=== PATIENT | male | born 1955 | race American Indian/Alaskan Native ===

== ENCOUNTER 2021-03-03 16:28 | Inpatient (IN) ==
--- NOTE | 2021-03-03 18:47 | XRay Report ---
HISTORY: COVID pneumonia with worsening shortness of breath and cough FINDINGS: There is a severe diffuse infiltrates throughout the left lung and mild to moderate pneumonia centrally in the right lung. No prior study is available for comparison. No pleural effusion is present. The heart size is within upper limits of normal. Aorta is mildly tortuous. IMPRESSION: Severe pneumonia in the left and mild to moderate pneumonia in the right lung Interpreted and Authenticated by: Edu Dougherty 03/03/21
[2021-03-03 19:50] LABS: Basophils # (Auto) 0.01 K/mcL (0.00-0.30); Basophils % (Auto) 0.1 % (0.0-2.0); Eosinophils # (Auto) 0.01 K/mcL (0.00-0.70); Eosinophils % (Auto) 0.1 % (0.0-7.0); Hematocrit 38.4 % (40.1-51.0); Hemoglobin 13.2 g/dL (13.7-17.5); Lymphocytes # (Auto) 0.95 K/mcL (1.50-4.80); Lymphocytes % (Auto) 11.8 % (15.5-49.0); Mean Cell Volume 83.8 fL (80.0-100.0); Mean Corpuscular HGB Conc 34.4 g/dL (31.0-36.0); Mean Platelet Volume 11.6 fL (7.4-10.4); Monocytes # (Auto) 0.48 K/mcL (0.10-0.90); Platelet Count 246 K/mcL (140-440); RBC 4.58 M/mcL (4.63-6.08); Red Cell Distribution Width 13.2 % (11.5-14.5)
[2021-03-03] MEDS ORDERED: IPRATROPIUM/ALBUTEROL 3 ML AMPUL.NEB NEB ONE (19:53)
--- NOTE | 2021-03-03 19:53 | Emergency Department Note ---
HPI General Chief complaint: Shortness of Breath/Dyspnea Stated complaint: cough, SOB Time Seen by Provider: 03/03/21 17:21 Source: patient Mode of arrival: ambulatory Limitations: no limitations History of Present Illness HPI Narrative: This is a 65-year-old Covid + male patient who presents with worsening shortness of breath. He was diagnosed with Covid about 17 days ago. A chest x-ray today shows bilateral infiltrates consistent with Covid pneumonia. He is requiring 3 L of oxygen to keep his sats above 92%. He drops down to the low 80s on room air. Patient has no other medical comorbidities and is not on medications. States he can get a sleep at night due to his coughing and he reports pleuritic chest pain. Related Data Allergies Allergy/AdvReac Type Severity Reaction Status Date / Time No Known Drug Allergies Allergy Verified 03/03/21 16:32 Review of Systems ROS ROS Narrative: Narrative: All systems ED: reviewed and negative except as stated. PFSH Narrative Patient History Narrative: Narrative: Medical/Surgical/Family History All Active Problems (Updated 03/03/21 @ 22:01 by Lali Montez PA-C) Acute respiratory failure with hypoxia (Acute) Pneumonia due to COVID-19 virus (Acute) Social History Smoking Status: Never smoker Exam Narrative Narrative: General: AOx3, NAD, nontoxic appearing. Pleasant and conversant. HEENT: PERRLA, EOMI, normocephalic. Moist mucous membranes. Normal facies and normal dentition. Chest: Symmetric, no pain to palpation Respiratory: Bilateral crackles in all lung isabel. Productive cough noted. Mild respiratory distress. Labored breathing with respiratory rate 33 breaths/min. Heart: Regular rate and rhythm, no murmurs/clicks/rubs. Abdomen: Non-tender, Non distended, normal bowel tones. No organomegaly. Extremities: Warm and well perfused. No edema. DP 2+ bilaterally. No venous stasis. Neuro: No focal deficits. Cranial nerves II-XII normal. Skin: Warm dry, no rashes or lesions, no cyanosis. Psych: Normal mood and affect Heme/Lymph: No abnormal bruising General Limitations: no limitations Course Course Course Narrative: 65-year-old male presents with bilateral Covid pneumonia and acute hypoxic respiratory failure Reevaluation(s) Reevaluation #1: Chest x-ray shows bilateral pneumonia with a right middle lobe infiltrate. Check a CBC and CMP Given patient's hypoxia he will need admission and treatment. Will initiate Decadron 6 mg IV x1 dose and DuoNeb therapies. Give 1 g IV ceftriaxone for right lower lobe infiltrate, possible community- acquired pneumonia Vital Signs Vital signs: Vital Signs Temperature 98.1 F 03/03/21 16:29 Pulse Rate 97 H 03/03/21 16:29 Pulse Oximetry (%) 90 03/03/21 16:29 Temperature 99.8 F H 03/03/21 18:16 Pulse Rate 85 03/03/21 21:46 Respiratory Rate 37 H 03/03/21 21:46 Blood Pressure 124/73 03/03/21 21:46 Pulse Oximetry (%) 92 03/03/21 21:46 MDM MDM Narrative Medical decision making narrative: COVID-19 pneumonia Acute hypoxic respiratory failure The patient meets criteria for admission. I signed the patient out to the ospitalist who has accepted. Lab Data Result diagrams: 03/03/21 18:51 03/03/21 18:51 Labs: Lab Results 03/03/21 03/03/21 Range/Units 18:51 18:51 WBC 8.0 (4.5-11.0) K/mcL RBC 4.58 L (4.63-6.08) M/mcL Hgb 13.2 L (13.7-17.5) g/dL Hct 38.4 L (40.1-51.0) % MCV 83.8 (80.0-100.0) fL MCH 28.8 (26.0-34.0) pg MCHC 34.4 (31.0-36.0) g/dL RDW 13.2 (11.5-14.5) % Plt Count 246 (140-440) K/mcL MPV 11.6 H (7.4-10.4) fL Neut % (Auto) 82.0 H (38.0-78.0) % Lymph % (Auto) 11.8 L (15.5-49.0) % [place] % (Auto) 6.0 (1.0-12.0) % Eos % (Auto) 0.1 (0.0-7.0) % Baso % (Auto) 0.1 (0.0-2.0) % Lymph # (Auto) 0.95 L (1.50-4.80) K/mcL [place] # (Auto) 0.48 (0.10-0.90) K/mcL Eos # (Auto) 0.01 (0.00-0.70) K/mcL Baso # (Auto) 0.01 (0.00-0.30) K/mcL Absolute Neutrophils 6.57 (1.80-8.00) K/mcL Sodium 126 L (133-145) mmol/L Potassium 3.9 (3.3-5.1) mmol/L Chloride 91 L (96-108) mmol/L Carbon Dioxide 21 L (22-30) mmol/L Anion Gap 14.0 (8.0-16.0) BUN 15 (8-23) mg/dL Creatinine 1.0 (0.7-1.2) mg/dL GFR Calculation 79 Glucose 115 H (70-105) mg/dL Calcium 8.3 L (8.6-10.4) mg/dL Total Bilirubin 0.6 (0.1-1.0) mg/dL AST 51 H (<40) U/L ALT 50 H (<40) U/L Alkaline Phosphatase 96 (39-117) U/L Total Protein 7.1 (5.9-8.4) gm/dL Albumin 3.4 (3.2-5.2) gm/dL Globulin 3.7 (2.2-3.7) gm/dL Albumin/Globulin Ratio 0.9 L (1.0-2.3) CC TIME Critical Care Time Critical Care Time: Yes Total Critical Care Time: 31 Attestation: I personally spent a total of 31 minutes of critical care time in obtaining history, performing a physical exam, bedside monitoring of interventions, collecting interpreting tests and discussions with consultants but excluding time spent performing procedures, treating other patients and teaching time. Clinical concern hypoxic respiratory failure Intervention Oxygen, decadron, admission Discharge Plan Patient/Caregiver Discharge Instructions Pt seen by ENT NURSE/PA only: Yes Clinical Impression: Acute respiratory failure with hypoxia, Pneumonia due to COVID-19 virus Patient Disposition: Xfer As Inpt ([facility]) Condition: Fair Follow up with: William Cabrera ARNP [Primary Care Provider] -
[2021-03-03] MEDS ORDERED: DEXAMETHASONE 10 MG/ML VIAL IV ONE (19:54)
[2021-03-03 20:00] LABS: ALT/SGPT 50 U/L (<40); AST/SGOT 51 U/L (<40); Albumin 3.4 gm/dL (3.2-5.2); Albumin/Globulin Ratio 0.9 (1.0-2.3); Alkaline Phosphatase 96 U/L (39-117); Bilirubin,Total 0.6 mg/dL (0.1-1.0); Blood Urea Nitrogen 15 mg/dL (8-23); Calcium 8.3 mg/dL (8.6-10.4); Carbon Dioxide 21 mmol/L (22-30); Chloride 91 mmol/L (96-108); Globulin 3.7 gm/dL (2.2-3.7); Glomerular Filtration Rate 79; Glucose 115 mg/dL (70-105)
[2021-03-03] MEDS ORDERED: cefTRIAXone 1 GM VIAL IV ONE (20:57)
--- NOTE | 2021-03-03 21:37 | Internal Med History&Physical ---
HPI History of Present Illness Patient information: Note initiated : 03/03/21 at 9:34 pm Service Date, if different from initiated Date: [] Patient: Ashu De Jesus 65 y/o M admitted on for cough, SOB. Chief Complaint: [] History of present illness: Mr. De Jesus is a 65 year old male who was diagnosed with COVID-19 about 17 days ago presented to the ED with increasing dyspnea and found to be hypoxic. Chest xray is consistent with bilateral pneumonia. Review of systems Constitutional: positive for chills, fever, fatigue Eyes: no vision changes or pain Cardiovascular: no chest pain, no palpitations Respiratory: positive for dry cough and dyspnea Gastrointestinal: no abdominal pain, no nausea, vomiting, or diarrhea Genitourinary: no dysuria or difficulty voiding Musculoskeletal: no arthralgia Integumentary: no skin lesion or wound Neurological: no focal weakness or numbness Psychiatric: no anxiety or depression Physical exam Head: Atraumatic, normal inspection. Eyes: normal appearance, no scleral icterus. Neck: full ROM Respiratory: nasal canula, no respiratory distress. Cardiovascular: normal rate and rhythm, S1, S2. GI/Abdominal: soft, nontender, no guarding. Extremities: full range of motion, nontender. Neurological: CN II-XII intact, intact motor, intact sensation. Psychiatric: normal mood. Skin: warm, normal color PFSH PFSH All Active Problems (Updated 03/03/21 @ 22:01 by Lali Montez PA-C) Acute respiratory failure with hypoxia (Acute) Pneumonia due to COVID-19 virus (Acute) MEDS/ALLERGIES Home Medications and Allergies Home Medications Medication Instructions Recorded Confirmed Type losartan 50 mg PO QAM 03/03/21 03/04/21 History naproxen 500 mg PO QDAY PRN 03/03/21 03/04/21 History Allergies Allergy/AdvReac Type Severity Reaction Status Date / Time No Known Drug Allergies Allergy Verified 03/03/21 16:32 EXAM Constitutional Vitals: Temp Pulse Resp BP Pulse Ox 99.8 F H 96 H 33 H 139/80 95 03/03/21 18:16 03/03/21 20:12 03/03/21 20:12 03/03/21 20:12 03/03/21 20:12 DATA Data Completed and Pending Labs: Labs from last 24 hours 0903/03/21 03/03/21 18:51 18:51 18:51 WBC 8.0 RBC 4.58 L Hgb 13.2 L Hct 38.4 L MCV 83.8 MCH 28.8 MCHC 34.4 RDW 13.2 Plt Count 246 MPV 11.6 H Neut % (Auto) 82.0 H Lymph % (Auto) 11.[address] % (Auto) 6.0 Eos % (Auto) 0.1 Baso % (Auto) 0.1 Lymph # (Auto) 0.[address] # (Auto) 0.48 Eos # (Auto) 0.01 Baso # (Auto) 0.01 Absolute Neutrophils 6.57 Platelet Estimate Pending RBC Morphology Pending Sodium 126 L Potassium 3.9 Chloride 91 L Carbon Dioxide 21 L Anion Gap 14.0 BUN 15 Creatinine 1.0 GFR Calculation 79 Glucose 115 H Calcium 8.3 L Total Bilirubin 0.6 AST 51 H ALT 50 H Alkaline Phosphatase 96 Total Protein 7.1 Albumin 3.4 Globulin 3.7 Albumin/Globulin Ratio 0.9 L A/P Narrative A/P Narrative: Assessment: 65 year old male admitted for hypoxia probably secondary to COVID-19 pneumonia and also a possible community acquired pneumonia. #Acute hypoxic respiratory failure #Severe COVID-19 pneumonia #Possible community acquired pneumonia #Essential hypertension Plan -Dexamethasone and Remdesivir -Oxygen supplementation. -Ceftriaxone and Azithromycin. -Daily labs. -DVT ppx: Lovenox -Code status: Front Office Help Spent With Patient Time: Total time spent is greater than 50% in coordination of care (as documented) at patient's floor/unit and/or counseling patient:
[2021-03-03 22:09] LABS: Eosinophils % (Manual) 1 % (0-7); Lymphocytes % 17 % (15-49); Monocytes % (Manual) 5 % (1-12); Platelet Estimate NORMAL (Normal); RBC Morphology NORMAL (Normal); Segmented Neutrophils % 77 % (38-78)
[2021-03-03] MEDS ORDERED: SENNOSIDES 1 TABLET PO PRN (22:23)
[2021-03-03] MEDS ORDERED: AZITHROMYCIN 500 MG in DEXTROSE 5% IN WATER 250 ML IV ONE (22:23)
[2021-03-03] MEDS ORDERED: LACTULOSE 20 GM/30 ML ORAL.SOL PO PRN (22:23)
[2021-03-03] MEDS ORDERED: ONDANSETRON 4 MG/2 ML VIAL IV PRN (22:23)
[2021-03-03] MEDS: 0.9 % SODIUM CHLORIDE 1,000 ML IV SCH (23:12)
[2021-03-03] MEDS: 0.9 % SODIUM CHLORIDE 10 ML SYRINGE IV SCH (23:13)
[2021-03-04] MEDS: 0.9 % SODIUM CHLORIDE 10 ML SYRINGE IV SCH ×3 (04:19→20:40)
[2021-03-04 08:25] LABS: Basophils # (Auto) 0.01 K/mcL (0.00-0.30); Basophils % (Auto) 0.3 % (0.0-2.0); Eosinophils # (Auto) 0 K/mcL (0.00-0.70); Eosinophils % (Auto) 0 % (0.0-7.0); Hematocrit 36.3 % (40.1-51.0); Hemoglobin 11.9 g/dL (13.7-17.5); Lymphocytes # (Auto) 0.37 K/mcL (1.50-4.80); Lymphocytes % (Auto) 10.9 % (15.5-49.0); Mean Corpuscular HGB Conc 32.8 g/dL (31.0-36.0); Mean Platelet Volume 11.7 fL (7.4-10.4); Monocytes # (Auto) 0.15 K/mcL (0.10-0.90); Monocytes % (Auto) 4.4 % (1.0-12.0); Neutrophils % (Auto) 84.4 % (38.0-78.0); Platelet Count 234 K/mcL (140-440); RBC 4.22 M/mcL (4.63-6.08); Red Cell Distribution Width 13.3 % (11.5-14.5); WBC 3.4 K/mcL (4.5-11.0)
[2021-03-04 08:43] LABS: ALT/SGPT 48 U/L (<40); AST/SGOT 42 U/L (<40); Albumin 3.1 gm/dL (3.2-5.2); Alkaline Phosphatase 82 U/L (39-117); Bilirubin,Direct 0.2 mg/dL (<0.3); Bilirubin,Total 0.5 mg/dL (0.1-1.0); Blood Urea Nitrogen 14 mg/dL (8-23); Calcium 8.2 mg/dL (8.6-10.4); Carbon Dioxide 22 mmol/L (22-30); Chloride 98 mmol/L (96-108); Globulin 3.2 gm/dL (2.2-3.7); Glomerular Filtration Rate 90; Glucose 139 mg/dL (70-105); Lactate Dehydrogenase 378 U/L (135-225); Phosphorous 3.4 mg/dL (2.5-4.5); Triglycerides 89 mg/dL (<150); Uric Acid 5.2 mg/dL (2.5-8.0)
[2021-03-04] MEDS: ENOXAPARIN 40 MG/0.4 ML SYRINGE SQ SCH (08:43)
[2021-03-04] MEDS: DEXAMETHASONE 10 MG/ML VIAL IV SCH (08:44)
[2021-03-04] MEDS: cefTRIAXone 1 GM VIAL IV SCH (08:44)
[2021-03-04] MEDS: 0.9 % SODIUM CHLORIDE 1,000 ML IV SCH ×4 (08:45→22:49)
[2021-03-04] MEDS: DOCUSATE SODIUM 100 MG CAPSULE PO SCH ×2 (08:51→20:40)
--- NOTE | 2021-03-04 09:00 | EKG ---
[facility] Test Date: 2021-03-03 Pat Name: Ashu De Jesus Department: ED Room: Gender: Male Pinmaker: aw : [id number] Requested By: Dudley Kamara Order Number: [id number] Reading MD: Kelton Holland Measurements Intervals [place] Rate: 89 P: 21 FL: 157 QRS: 51 QRSD: 101 T: 8 QT: 360 QTc: 439 Interpretive Statements Sinus rhythm Minimal ST elevation, anterior leads Electronically Signed On 03-04-2021 9:00:37 PDT by Kelton Holland /[id number]
[2021-03-04] MEDS ORDERED: REMDESIVIR 200 MG in 0.9 % SODIUM CHLORIDE 250 ML IV ONE (10:00)
[2021-03-04] MEDS ORDERED: ALBUTEROL SULFATE 2.5 MG/3 ML NEBULIZER NEB PRN (11:09)
[2021-03-04] MEDS: AZITHROMYCIN 500 MG in DEXTROSE 5% IN WATER 250 ML IV SCH (14:14)
[2021-03-05] MEDS: 0.9 % SODIUM CHLORIDE 1,000 ML IV SCH ×2 (03:43→04:36)
[2021-03-05] MEDS: 0.9 % SODIUM CHLORIDE 10 ML SYRINGE IV SCH (04:33)
[2021-03-05] MEDS: DOCUSATE SODIUM 100 MG CAPSULE PO SCH (08:39)
[2021-03-05] MEDS: DEXAMETHASONE 10 MG/ML VIAL IV SCH (08:49)
[2021-03-05] MEDS: ENOXAPARIN 40 MG/0.4 ML SYRINGE SQ SCH (08:50)
[2021-03-05] MEDS: AZITHROMYCIN 500 MG in DEXTROSE 5% IN WATER 250 ML IV SCH (08:50)
[2021-03-05] MEDS ORDERED: REMDESIVIR 100 MG in 0.9 % SODIUM CHLORIDE 250 ML IV SCH (09:00)
[2021-03-05 09:01] LABS: ALT/SGPT 59 U/L (<40); AST/SGOT 42 U/L (<40); Albumin 2.9 gm/dL (3.2-5.2); Albumin/Globulin Ratio 0.9 (1.0-2.3); Alkaline Phosphatase 89 U/L (39-117); Bilirubin,Direct < 0.2 mg/dL (0-0.3); Bilirubin,Total 0.3 mg/dL (0.1-1.0); Blood Urea Nitrogen 18 mg/dL (8-23); Calcium 8.4 mg/dL (8.6-10.4); Carbon Dioxide 22 mmol/L (22-30); Chloride 104 mmol/L (96-108); Globulin 3.4 gm/dL (2.2-3.7); Glomerular Filtration Rate 90; Glucose 121 mg/dL (70-105); Lactate Dehydrogenase 372 U/L (135-225); Phosphorous 1.9 mg/dL (2.5-4.5); Triglycerides 94 mg/dL (<150); Uric Acid 4.5 mg/dL (2.5-8.0)
[2021-03-05 09:19] LABS: Basophils # (Auto) 0.01 K/mcL (0.00-0.30); Basophils % (Auto) 0.1 % (0.0-2.0); Eosinophils # (Auto) 0 K/mcL (0.00-0.70); Eosinophils % (Auto) 0 % (0.0-7.0); Hematocrit 37.2 % (40.1-51.0); Hemoglobin 11.7 g/dL (13.7-17.5); Lymphocytes # (Auto) 0.74 K/mcL (1.50-4.80); Lymphocytes % (Auto) 6.9 % (15.5-49.0); Mean Cell Volume 88.6 fL (80.0-100.0); Mean Corpuscular HGB Conc 31.5 g/dL (31.0-36.0); Mean Platelet Volume 11.8 fL (7.4-10.4); Monocytes # (Auto) 0.58 K/mcL (0.10-0.90); Monocytes % (Auto) 5.4 % (1.0-12.0); Neutrophils % (Auto) 87.6 % (38.0-78.0); Platelet Count 286 K/mcL (140-440); Red Cell Distribution Width 13.5 % (11.5-14.5); WBC 10.7 K/mcL (4.5-11.0)
[2021-03-05] MEDS: cefTRIAXone 1 GM VIAL IV SCH (09:39)
--- NOTE | 2021-03-05 13:10 | Discharge Summary ---
Discharge Provider Provider Patient information: Note initiated : 03/05/21 at 1:09 pm Service Date, if different from initiated Date: [] Patient: Ashu De Jesus 65 y/o M admitted on 03/03/21 for cough, SOB. Chief Complaint: [] Date of admission: 03/03/21 22:21 Discharge date: 03/05/21 Primary care physician: JUANCHO Guadalupe Consults: 03/03/21 Consult to Physician [CONS] Stat Comment: Consulting Provider: Sandeep Grimes Reason For Exam: Physician to Consult Discharge Meds Discharge Medications Home Medications losartan 50 mg PO QAM 03/03/21 [History Confirmed 03/04/21 Last Taken 03/03/21 09:00] naproxen 500 mg PO QDAY PRN 03/03/21 [History Confirmed 03/04/21 Last Taken 02/24/21] azithromycin 250 mg PO QDAY 2 Days #2 tab 03/05/21 [Rx Last Taken Unknown] cefuroxime axetil 500 mg PO BID 3 Days #6 tab 03/05/21 [Rx Last Taken Unknown] dexamethasone 6 mg PO QDAY 9 Days #9 tab 03/05/21 [Rx Last Taken Unknown] COURSE Hospital Course Hospital course: Mr. De Jesus is a 65 year old male who was diagnosed with COVID-19 about 17 days ago presented to the ED with increasing dyspnea and found to be hypoxic. Chest xray is consistent with bilateral pneumonia. 03/05: Discharged to home to complete course of dexamethasone and oral antibiotics for possible community acquired pneumonia. Home oxygen evalaluation prior to discharge. Physical exam Head: Atraumatic, normal inspection. Eyes: normal appearance, no scleral icterus. Neck: full ROM Respiratory: nasal canula, no respiratory distress. Cardiovascular: normal rate and rhythm, S1, S2. GI/Abdominal: soft, nontender, no guarding. Extremities: full range of motion, nontender. Neurological: CN II-XII intact, intact motor, intact sensation. Psychiatric: normal mood. Skin: warm, normal color Discharge diagnosis: COVID-19 pneumonia Secondary discharge diagnosis: Possible community aquired pneumonia Time Spent with Patient Time attestation: Total time spent providing and/or coordinating discharge services: EXAM Constitutional Vitals: Temp Pulse Resp BP Pulse Ox 97.7 F 85 21 118/72 92 03/05/21 12:02 03/05/21 12:37 03/05/21 12:37 03/05/21 12:32 03/05/21 12:37 Discharge Data Data Completed and Pending Labs on day of discharge: Labs from last 24 hours 03/05/21 03/05/21 04:58 04:58 WBC 10.7 RBC 4.20 L Hgb 11.7 L Hct 37.2 L MCV 88.6 MCH 27.9 MCHC 31.5 RDW 13.5 Plt Count 286 MPV 11.8 H Neut % (Auto) 87.6 H Lymph % (Auto) 6.9 L [place] % (Auto) 5.4 Eos % (Auto) 0 Baso % (Auto) 0.1 Lymph # (Auto) 0.74 L [place] # (Auto) 0.58 Eos # (Auto) 0 Baso # (Auto) 0.01 Absolute Neutrophils 9.39 H Sodium 138 Potassium 4.0 Chloride 104 Carbon Dioxide 22 Anion Gap 12.0 BUN 18 Creatinine 0.9 GFR Calculation 90 Glucose 121 H Uric Acid 4.5 Calcium 8.4 L Phosphorus 1.9 L Magnesium 2.3 Total Bilirubin 0.3 Direct Bilirubin < 0.2 GGT 67 H AST 42 H ALT 59 H Alkaline Phosphatase 89 Lactate Dehydrogenase 372 H Total Protein 6.3 Albumin 2.9 L Globulin 3.4 Albumin/Globulin Ratio 0.9 L Triglycerides 94 Preliminary micro results at discharge 03/03/21 20:10 Gram Stain - Preliminary Sputum source - Aspirate Sputum Culture - Preliminary Discharge Plan Patient/Caregiver Discharge Instructions Activity: increase activity as tolerated Diet: Regular Diet Prescriptions: New cefuroxime axetil 500 mg tablet 500 mg PO BID 3 Days Qty: 6 RF: 0 azithromycin 250 mg tablet 250 mg PO QDAY 2 Days Qty: 2 RF: 0 dexamethasone 6 mg tablet 6 mg PO QDAY 9 Days Qty: 9 RF: 0 Continued losartan 50 mg tablet 50 mg PO QAM RF: 0 naproxen 500 mg tablet 500 mg PO QDAY PRN (Reason: Pain) RF: 0 Follow Up Plan Follow up with: William Cabrera ARNP [Primary Care Provider] - Patient Disposition: Home, Self-Care Prognosis: Fair Discharge Orders: Discharge Order (Routine); Ordered 03/05/21 Ordered By: Sandeep Grimes QUALITY VTE Deep Vein Thrombosis/Pulmonary Embolism Present on Admission: No
== END 2021-03-05 14:05 | disposition home or self-care (01) | DRG 177 ==
LOC: ED 16:28 → ICU 22:15
PROVIDERS: ADMIT Internal Medicine; ATTEND Internal Medicine